=== PATIENT | female | born 1985 | race Caucasian/White ===

== ENCOUNTER → 2020-07-30 | Day surgery (SDC) | payer SELFPAY ==
[~2020-07-30] VITALS: Ht 162.6 cm; Wt 82.1 kg
[~2020-07-30] MED LIST: ECK ANTACID1 CHW PO; MED MARIJUANA; OMEPRAZOLE DR40 MG PO; PERCOCET 5/325M1 TAB PO; SAM E PO; VITAMINS & PO
[2020-07-30 08:32] LABS: HCG SERUM/URINE (NEG/POS) NEGATIVE (NEGATIVE)
[2020-07-30 10:48] VITALS: BP 100/56
== END | disposition home or self-care (01) | DRG 572 ==
LOC: ORM 08:00
PROVIDERS: ATTEND Surgery
PROC: 0JB90ZZ Excision of Buttock Subcutaneous Tissue and Fascia, Open Approach (ICD-10-PCS; principal; 2020-07-30)
DX: L72.9 Follicular cyst of the skin and subcutaneous tissue, unspecified (principal); Z20.822 Contact with and (suspected) exposure to COVID-19
CPT/HCPCS: C9290